=== PATIENT | female | born 1980 | race Caucasian/White ===

== ENCOUNTER 2016-06-10 09:36 | Outpatient (RCR) | payer OTHER | END 2016-08-30 | LOC: WSOH | DX: S61.402A Unspecified open wound of left hand, initial encounter (principal); W26.8XXA Contact with other sharp object(s), not elsewhere classified, initial encounter; Y93.G3 Activity, cooking and baking; Y92.218 Other school as the place of occurrence of the external cause; Y99.0 Civilian activity done for income or pay ==